=== PATIENT | male | born 2000 | race Caucasian/White ===

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

== ENCOUNTER 2018-03-05 05:47 | Emergency (ER) | payer MEDICAID, OTHER ==
[~2018-03-05] VITALS: Ht 177.8 cm; Wt 79.8 kg
[2018-03-05] MEDS ORDERED: GLUCAGON 1 MG ONE ×2 (06:23→06:52)
[2018-03-05] MEDS ORDERED: GLUCAGON 1 MG IVPush ONE (06:30)
[2018-03-05] MEDS ORDERED: PROPOFOL 10 MG/ML, 20ML ONE (08:35)
[2018-03-05] MEDS ORDERED: PROPOFOL 10 MG/ML, 20ML IVPush ONE (09:00)
[2018-03-05 09:30] VITALS: BP 112/50
== END 2018-03-05 09:44 | disposition home or self-care (01) ==
LOC: ED 09:30
DX: T18.128A Food in esophagus causing other injury, initial encounter (principal); K21.0 Gastro-esophageal reflux disease with esophagitis; X58.XXXA Exposure to other specified factors, initial encounter; Y93.89 Activity, other specified; Y92.89 Other specified places as the place of occurrence of the external cause; Y99.8 Other external cause status
CPT/HCPCS: 43247; 88305; 96374; 99151; 99153; 99285; J1610